=== PATIENT | male | born 1980 | race Caucasian/White ===

== ENCOUNTER 2021-10-15 20:22 | Inpatient (IN) | payer MEDICAID ==
[~2021-10-15] VITALS: Ht 172.7 cm; Wt 72.6 kg
[2021-10-15 20:51] VITALS: BP_SYST 115
[2021-10-15] MEDS ORDERED: IBUPROFEN 800 MG TABLET PO ONE (22:45)
[2021-10-16] MEDS ORDERED: HYDROcodone/ACETAMIN 10-325 MG TAB PO ONE (00:30)
[2021-10-16 00:55] LABS: BASOPHILS # (AUTO) 0.1 K/uL (0.0-0.2); BASOPHILS % (AUTO) 0.5 % (0.0-2.0); EOSINOPHILS % (AUTO) 0.4 % (0.0-4.0); HEMOGLOBIN 14.7 g/dL (14.0-18.0); LYMPHOCYTES # (AUTO) 2.2 K/uL (1.0-5.5); LYMPHOCYTES % (AUTO) 22.1 % (20.5-51.5); MEAN CORPUSCULAR HEMOGLOBIN 29 pg (27-31); MEAN CORPUSCULAR HGB CONC 34 % (32-36); MEAN CORPUSCULAR VOLUME 86 fL (79.0-98.0); MONOCYTES # (AUTO) 0.8 K/uL (0.0-1.0); MONOCYTES % (AUTO) 8.5 % (1.7-9.3); NEUTROPHILS # (AUTO) 6.7 K/uL (1.8-7.7); NEUTROPHILS % (AUTO) 68.5 % (40.0-70.0); PLATELET COUNT (AUTO) 211 K/uL (130-430); RED BLOOD CELL COUNT(AUTO) 4.99 MIL/uL (4.2-6.2); RED CELL DISTRIBUTION WIDTH 13.1 % (9.0-15.0); WHITE BLOOD COUNT (AUTO) 9.8 K/uL (4.8-10.8)
[2021-10-16 00:59] LABS: CREATININE 1.37 mg/dL (0.55-1.30); POTASSIUM 4.1 mmol/L (3.5-5.1)
[2021-10-16 01:05] LABS: ALBUMIN 3.7 g/dL (3.4-4.8); TOTAL BILIRUBIN 0.9 mg/dL (0.0-1.0)
[2021-10-16 05:33] VITALS: BP_SYST 101
[2021-10-16 08:08] VITALS: BP_SYST 124
[2021-10-16] MEDS: ENOXAPARIN SODIUM 40 MG/0.4 ML SYRINGE SUBCUT SCH (09:00)
[2021-10-16] MEDS: KCL 20 mEq in D5NS 1000 mL 1,000 ML IV SCH ×2 (09:47→17:35)
[2021-10-16] MEDS ORDERED: fentaNYL CITRATE/PF 100 MCG/2 ML AMP IVP PRN ×2 (11:15)
[2021-10-16] MEDS ORDERED: ONDANSETRON HCL 4 MG/2 ML VIAL IVP PRN (11:15)
[2021-10-16] MEDS ORDERED: METOCLOPRAMIDE HCL 10 MG/2 ML VIAL IVP PRN (11:15)
[2021-10-16 11:40] LABS: PROTHROMBIN TIME 9.9 SECS (9.5-12.5)
[2021-10-16 12:08] LABS: BILIRUBIN,URINE NEGATIVE (NEGATIVE); BLOOD, URINE NEGATIVE (NEGATIVE); CLARITY/URINE CLEAR (CLEAR); COLOR,URINE YELLOW (YELLOW); GLUCOSE,URINE NEGATIVE (NEGATIVE); KETONES,URINE NEGATIVE (NEGATIVE); LEUKOCYTE ESTERASE ,URINE NEGATIVE (NEGATIVE); NITRITE, URINE NEGATIVE (NEGATIVE); PH,URINE 5.5 (5.0-8.0); PROTEIN URINE NEGATIVE (NEGATIVE); UROBILINOGEN,URINE 0.2 (0.2-1.0)
[2021-10-16 15:20] VITALS: BP_SYST 107
[2021-10-16] MEDS: HYDROcodone/ACETAMIN 10-325 MG TAB PO PRN ×2 (17:44→22:17)
[2021-10-16] MEDS ORDERED: MORPHINE SULFATE 10 MG/ML VIAL IM PRN (18:45)
[2021-10-16 20:00] VITALS: BP_SYST 127
[2021-10-16] MEDS: CEFAZOLIN 1 GM IVPB PREMIX 50 ML IV SCH (22:17)
[2021-10-17] MEDS: HYDROcodone/ACETAMIN 10-325 MG TAB PO PRN ×2 (04:05→12:59)
[2021-10-17] MEDS: CEFAZOLIN 1 GM IVPB PREMIX 50 ML IV SCH ×2 (05:37→16:04)
[2021-10-17 08:00] VITALS: BP_SYST 117; BP_SYST 122
[2021-10-17] MEDS: ENOXAPARIN SODIUM 40 MG/0.4 ML SYRINGE SUBCUT SCH (12:06)
[2021-10-17 16:00] VITALS: BP_SYST 130
[2021-10-17 17:52] VITALS: BP_SYST 120
[2021-10-17] MEDS ORDERED: fentaNYL 2MCG/ML ROPIVACAINE 0.2% 100 ML EPIDURAL BAG EP ONE (18:32)
[2021-10-17] MEDS ORDERED: NS 1000 ML IV.SOLN IV ONE (18:32)
[2021-10-17] MEDS ORDERED: NS IRRIG SOLN 1000 ML IR ONE (18:32)
[2021-10-17] MEDS ORDERED: BUPIVACAINE /EPINEPHRINE/PF 0.25% 30 ML VIAL INJ ONE (18:32)
[2021-10-17] MEDS ORDERED: CEFAZOLIN 2 GM IVPB PREMIX 50 ML IV ONE (18:32)
== END 2021-10-17 18:15 | disposition home or self-care (01) | DRG 313 ==
LOC: SED 20:22 → SMU 10-16 04:01
PROVIDERS: ADMIT Family Medicine; ATTEND Family Medicine
PROC: 0QSH04Z Reposition Left Tibia with Internal Fixation Device, Open Approach (ICD-10-PCS; 2021-10-16)
PROC: 0QSK04Z Reposition Left Fibula with Internal Fixation Device, Open Approach (ICD-10-PCS; principal; 2021-10-16 11:25)
DX: S82.302A Unspecified fracture of lower end of left tibia, initial encounter for closed fracture (principal); Z20.822 Contact with and (suspected) exposure to COVID-19; W11.XXXA Fall on and from ladder, initial encounter; Y93.89 Activity, other specified; Y92.89 Other specified places as the place of occurrence of the external cause; Y99.8 Other external cause status
CPT/HCPCS: 36415; 71045; 72100-TC; 73590-TC; 76001; 80053; 81003; 85025; 85610-TC; 85730-TC; 87081; 97116-GP; 97530-GP; 99285; C1713; C1763; J0690; J1650; J2270; J3010; J3490; J7030